=== PATIENT | male | born 1945 | race Caucasian/White ===

== ENCOUNTER 2016-11-08 13:18 | Emergency (ER) | payer OTHER ==
[~2016-11-08] VITALS: Ht 182.9 cm; Wt 75.5 kg
[~2016-11-08 13:18] MED LIST: ADVIL200 MG PO; AMLODIPINE BESY10 MG PO; ASPIR-LOW81 MG PO; ASPIRIN81 M2 PO; CALCIUM 500 WI1 EAC2 PO; CARBIDOPA/LEVO1 EACH PO; CELEXA10 MG PO; CELEXA20 MG PO; CITALOPRAM HBR20 MG PO; DEPAKOTE250 MG PO; DITROPAN5 MG PO; DIVALPROEX SOD250 MG PO; DIVALPROEX SOD500 MG PO; DOCUSATE SODIU100 MG PO; DUONEB 2.5-0.5 M3 ML AEROSOL; FENTANYL1 EAC4 TD; IBUPROFEN200 M1 PO; INVANZ1 GM IM; KEFLEX500 MG PO; LEVAQUIN500 MG PO; LEVAQUIN750 MG PO; LEVOFLOXACIN750 MG PO; LOVENOX40 MG/0.4 SC; MICONAZOLE NITR30 GM TP; MILLIPRED DP5 MG PO; MULTI-VITAMIN1 EAC4 PO; MYRBETRIQ50 MG PO; PLAVIX75 MG PO; PRAVACHOL40 MG PO; SINEMET 25-1001 EACH PO; STOOL SOFTENER100 MG PO; THERAGRAN1 TABLET PO; TYLENOL REGULA325 MG PO; TYLENOL WITH C1 EACH PO; VESICARE5 MG PO
[2016-11-08 14:30] LABS: BASOPHIL COUNT 0.1 K/uL (0-0.1); EOSINOPHIL (%) 1.7 % (0-5); EOSINOPHIL COUNT 0.1 K/uL (0-0.3); HEMATOCRIT 36.6 % (38.0-50.0); IMMATURE GRANULOCYTE (%) 0.2 % (0.0-0.7); LYMPHOCYTE COUNT 1.6 K/uL (1.0-2.8); MCH 32.4 PG (29.0-34.0); MCHC 32.8 G/DL (30.0-36.0); MCV 98.9 FL (86-99); MEAN PLAT.VOLUME 9.9 uM^3 (9.0-12.4); MONOCYTE (%) 7.5 % (3-12); MONOCYTE COUNT 0.6 K/uL (0-0.8); NEUTROPHIL (%) 70.8 % (45-76); PLATELET COUNT 196 K/uL (156-360); RBC DIS.WIDTH-CV 13.2 % (11.8-14.6); RBC DIS.WIDTH-SD 47.9 % (39-53); WHITE BLOOD COUNT 8.5 K/uL (4.1-10.2)
[2016-11-08 14:39] LABS: CHLORIDE 102 mEq/L (99-109); SODIUM 139 mEq/L (136-147)
[2016-11-08 14:41] LABS: GLUCOSE 137 mg/dL (70-99)
[2016-11-08 14:42] LABS: ANION GAP 9 MEQ/L (2-14)
[2016-11-08 14:45] LABS: GFR ESTIMATE (CALCULATED) > 59 mL/min/; UREA NITROGEN (BUN) 22 mg/dL (9-23)
[2016-11-08 17:41] VITALS: BP 115/69
== END 2016-11-08 17:44 ==
LOC: EME 13:18
PROVIDERS: Emergency Medicine
DX: R05 Cough (principal); J45.909 Unspecified asthma, uncomplicated; K21.9 Gastro-esophageal reflux disease without esophagitis; I10 Essential (primary) hypertension; F03.90 Unspecified dementia, unspecified severity, without behavioral disturbance, psychotic disturbance, mood disturbance, and anxiety; G20 Parkinson's disease; I25.2 Old myocardial infarction; Z85.46 Personal history of malignant neoplasm of prostate; Z86.73 Personal history of transient ischemic attack (TIA), and cerebral infarction without residual deficits; Z79.82 Long term (current) use of aspirin; Z87.891 Personal history of nicotine dependence
CPT/HCPCS: 71020; 80048; 85025 91; 93005; 99281; 99284

== ENCOUNTER 2017-03-09 20:03 | Observation (INO) | payer OTHER ==
[~2017-03-09] VITALS: Ht 172.7 cm; Wt 94.6 kg
[~2017-03-09 20:03] MED LIST changes: -AMLODIPINE BESY10 MG PO; +AMLODIPINE BESYL5 MG PO; -CALCIUM 500 WI1 EAC2 PO; +CALCIUM 600 +1 EAC2 PO
[2017-03-09 20:37] LABS: BASOPHIL (%) 0.4 % (0-1); BASOPHIL COUNT 0.1 K/uL (0-0.1); EOSINOPHIL (%) 0.1 % (0-5); HEMATOCRIT 40.6 % (38.0-50.0); HEMOGLOBIN 13.8 G/DL (12.5-16.6); IMMATURE GRANULOCYTE (%) 0.4 % (0.0-0.7); LYMPHOCYTE (%) 9.6 % (15-42); LYMPHOCYTE COUNT 1.3 K/uL (1.0-2.8); MCH 33.3 PG (29.0-34.0); MCV 97.8 FL (86-99); MONOCYTE (%) 9.3 % (3-12); MONOCYTE COUNT 1.3 K/uL (0-0.8); NEUTROPHIL (%) 80.2 % (45-76); NEUTROPHIL COUNT 10.7 K/uL (1.8-6.4); PLATELET COUNT 156 K/uL (156-360); RBC DIS.WIDTH-CV 13.6 % (11.8-14.6); RBC DIS.WIDTH-SD 49.5 % (39-53); RED BLOOD COUNT 4.15 M/uL (4.00-5.50); WHITE BLOOD COUNT 13.4 K/uL (4.1-10.2)
[2017-03-09 20:45] LABS: INTER. NORMALIZED RATIO 1.2
[2017-03-09 20:47] LABS: PTT 31.3 SEC (25-37)
[2017-03-09 20:50] LABS: CHLORIDE 101 mEq/L (99-109); SODIUM 136 mEq/L (136-147)
[2017-03-09 20:51] LABS: GLUCOSE 100 mg/dL (70-99)
[2017-03-09 20:55] LABS: CREATININE 0.8 mg/dL (0.6-1.3); GFR ESTIMATE (CALCULATED) > 59 mL/min/ (58.99-99999)
[2017-03-09 20:56] LABS: UREA NITROGEN (BUN) 26 mg/dL (9-23)
[2017-03-09 21:04] LABS: TROP-I INTERPRETATION NEGATIVE; TROPONIN-I < 0.01 ng/mL (0.0-0.30)
[2017-03-09] MEDS ORDERED: DEPAKOTE250 MG PO (21:05)
[2017-03-09] MEDS ORDERED: DEPAKOTE125 MG PO (21:05)
[2017-03-09] MEDS ORDERED: EFFEXOR XR150 MG PO (21:06)
[2017-03-09] MEDS ORDERED: ATORVASTATIN CA10 MG PO (21:06)
[2017-03-09] MEDS ORDERED: FUROSEMIDE40 MG PO (21:06)
[2017-03-09] MEDS ORDERED: MIRALAX17 GM PO (21:07)
[2017-03-09] MEDS ORDERED: SENNA PLUS TAB1 EACH PO (21:08)
[2017-03-09] MEDS ORDERED: REMERON30 M2 PO (21:08)
[2017-03-09] MEDS ORDERED: DULCOLAX10 MG PR (21:09)
[2017-03-09] MEDS ORDERED: PHILLIPS'400 MG/5 M PO (21:09)
[2017-03-09] MEDS ORDERED: FLEET ENEMA-AD118 ML PR (21:09)
[2017-03-09] MEDS ORDERED: TYLENOL REGULA325 MG PO (21:10)
[2017-03-09] MEDS ORDERED: TRAMADOL HCL50 MG PO (21:10)
[2017-03-09 21:43] LABS: HDL CHOLESTEROL 23 MG/DL (Desirable>=40); LDL CHOLESTEROL 36 mg/dL (Desirable<100); NON-HDL CHOLESTEROL 44 mg/dL (Desirable<160); TOTAL CHOLESTEROL 67 mg/dL (Desirable<200); TRIGLYCERIDES 42 MG/DL (Normal: <150)
[2017-03-10 04:37] VITALS: BP 113/76
[2017-03-10 07:00] VITALS: BP 105/65
[2017-03-10 12:00] VITALS: BP 98/60
[2017-03-10 15:42] VITALS: BP 107/64
[2017-03-10 19:40] VITALS: BP 120/68
[2017-03-11 00:02] VITALS: BP 107/59
[2017-03-11 03:53] VITALS: BP 124/61
[2017-03-11 07:07] LABS: HEMATOCRIT 38.8 % (38.0-50.0); HEMOGLOBIN 12.6 G/DL (12.5-16.6); MCH 32.8 PG (29.0-34.0); MCHC 32.5 G/DL (30.0-36.0); PLATELET COUNT 146 K/uL (156-360); RED BLOOD COUNT 3.84 M/uL (4.00-5.50); WHITE BLOOD COUNT 9.1 K/uL (4.1-10.2)
[2017-03-11 07:13] LABS: ALBUMIN 2.6 G/DL (3.2-4.8); ALKALINE PHOSPHATASE 46 IU/L (3-129); ALT (GPT) 16 IU/L (3-49); AST (GOT) 22 IU/L (2-34); CHLORIDE 107 MEQ/L (99-109); CREATININE 0.8 MG/DL (0.6-1.3); GFR ESTIMATE (CALCULATED) > 59 mL/min/ (58.99-99999); GLUCOSE 84 mg/dL (70-99); POTASSIUM 4.2 MEQ/L (3.7-5.4); SODIUM 139 MEQ/L (136-147); TOTAL BILIRUBIN 0.2 MG/DL (0.0-1.0); TOTAL PROTEIN 6.6 G/DL (6.4-8.3); UREA NITROGEN (BUN) 23 mg/dL (9-23)
[2017-03-11 07:37] VITALS: BP 101/63
[2017-03-11] MEDS ORDERED: PREDNISONE20 MG PO (08:05)
[2017-03-11] MEDS ORDERED: AUGMENTIN875 MG PO (08:05)
[2017-03-11] MEDS ORDERED: DUONEB 2.5-0.5 M3 ML AEROSOL (08:05)
== END 2017-03-11 10:45 ==
LOC: EME 20:03 → EDOF 03-10 02:55 → 5SOUTH 03-10 02:55 → ENRESERV 03-10 03:03 → 5SOUTH 03-10 04:26
PROVIDERS: Emergency Medicine; Family Medicine
DX: J18.9 Pneumonia, unspecified organism (principal); J44.0 Chronic obstructive pulmonary disease with (acute) lower respiratory infection; J44.1 Chronic obstructive pulmonary disease with (acute) exacerbation; R09.02 Hypoxemia; G45.9 Transient cerebral ischemic attack, unspecified; I69.351 Hemiplegia and hemiparesis following cerebral infarction affecting right dominant side; G20 Parkinson's disease; F02.80 Dementia in other diseases classified elsewhere, unspecified severity, without behavioral disturbance, psychotic disturbance, mood disturbance, and anxiety; I10 Essential (primary) hypertension; I25.10 Atherosclerotic heart disease of native coronary artery without angina pectoris; I25.2 Old myocardial infarction; Z85.46 Personal history of malignant neoplasm of prostate; E78.5 Hyperlipidemia, unspecified; Z79.82 Long term (current) use of aspirin; Z79.02 Long term (current) use of antithrombotics/antiplatelets; R91.1 Solitary pulmonary nodule; Z87.891 Personal history of nicotine dependence
CPT/HCPCS: 70450; 70496; 70498; 71045; 80048; 80053; 80061; 81003; 83605; 84484; 85025; 85027; 85610; 85730; 87040; 93005; 99281; 99285; G0378; J0456; J0696; J1650; J1956; J7030

== ENCOUNTER 2017-08-22 19:29 | Inpatient (IN) | payer OTHER ==
[~2017-08-22] VITALS: Ht 172.7 cm; Wt 75.0 kg
[~2017-08-22 19:29] MED LIST changes: +ATORVASTATIN CA10 MG PO; +AUGMENTIN875 MG PO; +DEPAKOTE125 MG PO; +DULCOLAX10 MG PR; +EFFEXOR XR150 MG PO; +FLEET ENEMA-AD118 ML PR; +FUROSEMIDE40 MG PO; +MIRALAX17 GM PO; +PHILLIPS'400 MG/5 M PO; +PREDNISONE20 MG PO; +REMERON15 M2 PO; +SENNA PLUS TAB1 EACH PO; +TRAMADOL HCL50 MG PO
[2017-08-22 20:50] LABS: HEMATOCRIT 45.3 % (38.0-50.0); HEMOGLOBIN 15.6 G/DL (12.5-16.6); MCH 33.6 PG (29.0-34.0); MCHC 34.4 G/DL (30.0-36.0); MCV 97.6 FL (86-99); PLATELET COUNT 147 K/uL (156-360); RBC DIS.WIDTH-CV 13.1 % (11.8-14.6); RBC DIS.WIDTH-SD 46.8 % (39-53); RED BLOOD COUNT 4.64 M/uL (4.00-5.50); WHITE BLOOD COUNT 11.2 K/uL (4.1-10.2)
[2017-08-22 21:04] LABS: ALBUMIN 3.5 g/dL (3.2-4.8); CHLORIDE 97 mEq/L (99-109); POTASSIUM 4.3 mEq/L (3.7-5.4); SODIUM 137 mEq/L (136-147)
[2017-08-22 21:07] LABS: GLUCOSE 109 mg/dL (70-99); TOTAL PROTEIN 9.1 g/dL (6.4-8.3)
[2017-08-22 21:09] LABS: TOTAL BILIRUBIN 0.4 mg/dL (0.0-1.0)
[2017-08-22 21:10] LABS: ALKALINE PHOSPHATASE 62 IU/L (3-129); CREATININE 1.3 mg/dL (0.6-1.3); GFR ESTIMATE (CALCULATED) 58 mL/min/ (58.99-99999)
[2017-08-22 21:11] LABS: UREA NITROGEN (BUN) 44 mg/dL (9-23)
[2017-08-22 21:12] LABS: AST (GOT) 150 IU/L (2-34)
[2017-08-22 21:13] LABS: ALT (GPT) 53 IU/L (3-49)
[2017-08-22 21:17] LABS: TROP-I INTERPRETATION NEGATIVE; TROPONIN-I 0.01 ng/mL (0.0-0.30)
[2017-08-22 22:17] LABS: APPEARANCE CLEAR ((CLEAR)); BILIRUBIN NEGATIVE; BLOOD MODERATE; COLOR YELLOW ((YELLOW)); GLUCOSE (STRIP) NEGATIVE; KETONES 5; LEUKOCYTES NEGATIVE; NITRITE NEGATIVE; PROTEIN (STRIP) 30; SPECIFIC GRAVITY 1.027 (1.000-1.030); UROBILINOGEN 0.2 MG/DL (0.2-1.0)
[2017-08-22 22:24] LABS: BACTERIA NONE SEEN /HPF; EPITHELIAL CELLS RARE /HPF; HYALINE CASTS 0-5 /LPF; MUCUS TRACE /LPF; UCUL ADDED? NO; WHITE BLOOD CELLS 0-5 /HPF (0-5)
[2017-08-22] MEDS ORDERED: DEPAKOTE500 MG PO (22:52)
[2017-08-22] MEDS ORDERED: ILEVRO1.7 ML LEFT EYE (22:56)
[2017-08-22] MEDS ORDERED: PREDNISOLONE AC15 ML LEFT EYE (22:58)
[2017-08-22] MEDS ORDERED: REMEDY PHYTOPL113 GM TP (23:00)
[2017-08-23] VITALS (7 sets, daily range): BP systolic 98–111; BP diastolic 53–61
[2017-08-23 10:34] LABS: TOTAL CHOLESTEROL 83 mg/dL (Desirable<200); TRIGLYCERIDES 55 MG/DL (Normal: <150)
[2017-08-23 10:35] LABS: HDL CHOLESTEROL 28 MG/DL (Desirable>=40); LDL CHOLESTEROL 44 mg/dL (Desirable<100); NON-HDL CHOLESTEROL 55 mg/dL (Desirable<160)
[2017-08-23 13:10] LABS: HEMOGLOBIN A1c (GLYCOHEMOGLOB) 5.4 % (Below 5.7)
[2017-08-24 02:30] VITALS: BP 110/62
[2017-08-24 07:05] VITALS: BP 112/62
[2017-08-24 11:13] VITALS: BP 107/63
[2017-08-24 15:01] VITALS: BP 110/64
[2017-08-24 19:47] VITALS: BP 109/62
[2017-08-25 00:52] VITALS: BP 128/65
[2017-08-25 04:20] VITALS: BP 112/65
[2017-08-25 07:56] VITALS: BP 124/70
[2017-08-25 12:27] VITALS: BP 114/61
[2017-08-25 15:14] VITALS: BP 113/55
[2017-08-25 20:09] VITALS: BP 126/69
[2017-08-26 00:33] VITALS: BP 130/71
[2017-08-26 04:39] VITALS: BP 122/63
[2017-08-26 06:10] LABS: HEMATOCRIT 42.9 % (38.0-50.0); HEMOGLOBIN 14.3 G/DL (12.5-16.6); MCH 32.9 PG (29.0-34.0); MCHC 33.3 G/DL (30.0-36.0); MCV 98.6 FL (86-99); PLATELET COUNT 150 K/uL (156-360); RBC DIS.WIDTH-CV 12.9 % (11.8-14.6); RBC DIS.WIDTH-SD 46.8 % (39-53); RED BLOOD COUNT 4.35 M/uL (4.00-5.50); WHITE BLOOD COUNT 9.2 K/uL (4.1-10.2)
[2017-08-26 06:33] LABS: ALBUMIN 2.8 G/DL (3.2-4.8); ALKALINE PHOSPHATASE 47 IU/L (3-129); ALT (GPT) 30 IU/L (3-49); AST (GOT) 39 IU/L (2-34); CHLORIDE 106 MEQ/L (99-109); GLUCOSE 89 mg/dL (70-99); POTASSIUM 4.2 MEQ/L (3.7-5.4); SODIUM 140 MEQ/L (136-147); TOTAL BILIRUBIN 0.5 MG/DL (0.0-1.0); TOTAL PROTEIN 7.1 G/DL (6.4-8.3)
[2017-08-26 06:34] LABS: CREATININE 0.7 MG/DL (0.6-1.3); GFR ESTIMATE (CALCULATED) > 59 mL/min/ (58.99-99999); UREA NITROGEN (BUN) 17 mg/dL (9-23)
[2017-08-26 07:58] VITALS: BP 111/69
[2017-08-26 16:04] VITALS: BP 127/66
[2017-08-27] VITALS: BP 113/56
[2017-08-27 07:06] VITALS: BP 126/63
[2017-08-27 15:14] VITALS: BP 116/59
[2017-08-27 23:38] VITALS: BP 126/66
[2017-08-28 07:26] VITALS: BP 130/60
[2017-08-28 15:29] VITALS: BP 108/56
[2017-08-28 23:32] VITALS: BP 120/61
[2017-08-29 06:54] VITALS: BP 110/61
[2017-08-29] MEDS ORDERED: AUGMENTIN875 MG PO (08:14)
== END 2017-08-29 10:58 | DRG 190 ==
LOC: EME 19:29 → 5SOUTH 23:05 → EDOF 23:05 → ENRESERV 23:27 → 5SOUTH 08-23 00:53
PROVIDERS: Family Medicine; Physician Assistant Medical
DX: J44.0 Chronic obstructive pulmonary disease with (acute) lower respiratory infection (principal); J69.0 Pneumonitis due to inhalation of food and vomit; I69.354 Hemiplegia and hemiparesis following cerebral infarction affecting left non-dominant side; F05 Delirium due to known physiological condition; F33.9 Major depressive disorder, recurrent, unspecified; S00.83XA Contusion of other part of head, initial encounter; W05.0XXA Fall from non-moving wheelchair, initial encounter; E78.5 Hyperlipidemia, unspecified; Y92.128 Other place in nursing home as the place of occurrence of the external cause; I10 Essential (primary) hypertension; I25.10 Atherosclerotic heart disease of native coronary artery without angina pectoris; K21.9 Gastro-esophageal reflux disease without esophagitis; G20 Parkinson's disease; G30.9 Alzheimer's disease, unspecified; F02.80 Dementia in other diseases classified elsewhere, unspecified severity, without behavioral disturbance, psychotic disturbance, mood disturbance, and anxiety; I95.9 Hypotension, unspecified; J44.1 Chronic obstructive pulmonary disease with (acute) exacerbation; I69.392 Facial weakness following cerebral infarction; I25.2 Old myocardial infarction; Z87.891 Personal history of nicotine dependence; Z79.02 Long term (current) use of antithrombotics/antiplatelets; Z79.82 Long term (current) use of aspirin; Z85.46 Personal history of malignant neoplasm of prostate
CPT/HCPCS: 70450; 70486; 71045; 71046; 72125; 73502; 80053; 80061; 81003; 83036; 83605; 84484; 85027; 87040; 92526 GN; 92610 GN; 93005; 94640; 94640 76; 94799; 97530 GO; 99202; 99281; 99285; J0456; J0696; J1650; J7030; J7040